=== PATIENT | female | born 1995 | race Caucasian/White ===

== ENCOUNTER 2023-04-25 23:10 | Inpatient (IN) | payer OTHER ==
[2023-04-25] MEDS ORDERED: LIDOCAINE 0.5% (PF) 5 MG/ML (50 ML SDV) SQ PRN (23:31)
[2023-04-25] MEDS ORDERED: TRANEXAMIC 1,000 MG/100ML-NACL 1,000 MG in EMPTY BAG 1 BAG IV PRN (23:31)
[2023-04-25] MEDS ORDERED: CARBOPROST TROMETHAMINE 250 MCG/ML 1 ML AMP IM PRN (23:31)
[2023-04-25] MEDS ORDERED: TERBUTALINE 1 MG/ML VIAL SQ PRN (23:31)
[2023-04-25] MEDS ORDERED: OXYTOCIN 10 UNIT/ML 1 ML VIAL IM PRN (23:31)
[2023-04-25] MEDS ORDERED: METHYLERGONOVINE 0.2 MG/ML 1 ML AMP IM PRN (23:31)
[2023-04-25] MEDS ORDERED: miSOPROStoL 200 MCG TAB PO PRN (23:31)
[2023-04-25 23:43] LABS: Basophils % (A) 0 %; Eosinophils # (A) 0.1 k/uL (0-0.7); Eosinophils % (A) 0 %; HCT 40.1 % (34.0-46.0); Lymphocytes # (A) 2.3 k/uL (1.0-4.8); Lymphocytes % (A) 13 %; MCH 29.9 pg (25.0-35.0); MCHC 34.9 g/dL (31.0-37.0); MCV 85.6 fL (80.0-100.0); Monocytes # (A) 0.8 k/uL (0-1.0); Monocytes % (A) 5 %; Neutrophils # (A) 14.2 k/uL (1.3-7.7); Neutrophils % (A) 80 %; Platelet Count 284 k/uL (150-450); RBC 4.69 m/uL (3.80-5.40); RDW 13.8 % (11.5-15.5); WBC 17.7 k/uL (3.8-10.6)
[2023-04-25] MEDS ORDERED: OXYTOCIN 30 UNITS/500 ML NS 30 UNIT in SALINE 1 500ML.BAG IV SCH (23:45)
[2023-04-26] MEDS: LACTATED RINGERS 1,000 ML IV SCH (01:10)
[2023-04-26] MEDS ORDERED: diphenhydrAMINE 50 MG CAP PO PRN (02:33)
[2023-04-26] MEDS ORDERED: ACETAMINOPHEN TAB 325 MG TAB PO PRN (02:33)
[2023-04-26] MEDS ORDERED: LANOLIN CREAM 5 GM TUBE TOPICAL PRN (02:33)
[2023-04-26] MEDS ORDERED: SIMETHICONE 80 MG CHEWABLE PO PRN (02:33)
[2023-04-26] MEDS ORDERED: diphenhydrAMINE 25 MG CAP PO PRN (02:33)
[2023-04-26] MEDS ORDERED: diphenhydrAMINE 50 MG/ML 1 ML VIAL IVP PRN ×2 (02:33)
[2023-04-26] MEDS ORDERED: ZOLPIDEM 5 MG TAB PO PRN (02:33)
[2023-04-26] MEDS ORDERED: BENZOCAINE/MENTHOL SPRAY 1 GM/SPRAY AEROSOL TOPICAL PRN (02:33)
[2023-04-26] MEDS ORDERED: HYDROCORTISONE 2.5% RECTAL CREAM 30 GM TUBE RECTAL PRN (02:33)
[2023-04-26] MEDS: IBUPROFEN 600 MG TAB PO PRN (02:44)
[2023-04-26 04:20] LABS: Amphetamine Screen,Urine Not Detected (NotDetected); Barbiturate Screen,Urine Not Detected (NotDetected); Benzodiazepines Screen,Urine Not Detected (NotDetected); Cocaine Screen,Urine Not Detected (NotDetected); Methadone Screen, Urine Not Detected (NotDetected); Opiate Screen,Urine Not Detected (NotDetected); Oxycodone Screen, Urine Not Detected (NotDetected); Phencyclidine Screen,Urine Not Detected (NotDetected); Tricyclic Antidepressant,Urine Not Detected (NotDetected); Urn Cannabinoid Scrn Not Detected (NotDetected)
--- NOTE | 2023-04-26 08:37 | P.HPOB ---
History of Present Illness H&P Date: 04/25/23 Chief Complaint: labor 27-year-old presented at 38 weeks and 5 days in active labor. Her cervix was completely dilated when she presented to triage and she was 0 station. heart tones are 140 with moderate variability. Her contractions were every 2-4 minutes. Review of Systems All systems: negative Constitutional: Denies chills, Denies fever Eyes: denies blurred vision, denies pain Ears, nose, mouth and throat: Denies headache, Denies sore throat Cardiovascular: Denies chest pain, Denies shortness of breath Respiratory: Denies cough Gastrointestinal: Denies abdominal pain, Denies diarrhea, Denies nausea, Denies vomiting Genitourinary: Denies dysuria, Denies hematuria Musculoskeletal: Denies myalgias Integumentary: Denies pruritus, Denies rash Neurological: Denies numbness, Denies weakness Psychiatric: Denies anxiety, Denies depression Endocrine: Denies fatigue, Denies weight change Past Medical History Past Medical History: No Reported History Additional Past Medical History / Comment(s): Patient did have care in [place] until the last 6 weeks when she stopped going due to them being "pushy" with the vaccines. History of Any Multi-Drug Resistant Organisms: None Reported Past Surgical History: No Surgical Hx Reported Past Anesthesia/Blood Transfusion Reactions: No Reported Reaction Smoking Status: Never smoker Medications and Allergies Allergies Allergy/AdvReac Type Severity Reaction Status Date / Time No Known Allergies Allergy Verified 04/25/23 23:31 Exam Osteopathic Statement: *. No significant issues noted on an osteopathic structural exam other than those noted in the History and Physical/Consult. Vital Signs Temp Pulse Resp BP Pulse Ox 04/26/23 03:23 98.6 F 86 16 145/87 98 04/26/23 02:09 68 16 155/88 99 04/26/23 01:39 73 16 140/81 99 04/26/23 01:09 80 16 147/84 98 04/26/23 00:54 78 16 145/80 99 04/26/23 00:39 76 16 144/81 98 04/26/23 00:24 75 16 153/81 99 04/26/23 00:09 97.6 F 68 16 164/83 100 04/25/23 23:30 97.6 F 79 16 153/81 99 Intake and Output 07/06/23 07/07/23 07/07/23 22:59 06:59 14:59 Intake Total 66.8 Output Total 335 Balance -268.2 Intake: Intake, IV Titration 66.8 Amount Oxytocin 30 Units/500 ml 66.8 Ns 30 unit In Saline 1 500ml.bag @ Per Protocol IV .Q0M [facility] Rx#:[id number] Output: Estimated Blood Loss 250 Output, Quantitative 85 Blood Loss Other: # Voids 2 Weight 102.058 kg Heart: Regular rate and rhythm Lungs: Clear to auscultation bilaterally Abdomen: Soft, nontender Extremities: Negative Homans sign Results Result Diagrams: 04/25/23 23:20 Abnormal Lab Results - Last 24 Hours (Table) 04/25/23 Range/Units 23:20 WBC 17.7 H (3.8-10.6) k/uL Neutrophils # 14.2 H (1.3-7.7) k/uL Assessment and Plan (1) Normal labor Current Visit: Yes Status: Acute Code(s): O80 - ENCOUNTER FOR FULL-TERM UNCOMPLICATED DELIVERY; Z37.9 - OUTCOME OF DELIVERY, UNSPECIFIED SNOMED Code(s): 52084979 Plan: 1. Expectant management 2. Anticipate normal vaginal delivery
--- NOTE | 2023-04-26 08:38 | P.PROBDLV ---
Vaginal Delivery Note - . Vaginal Delivery Note: 27-year-old presented at 38 weeks and 5 days in active labor. Her cervix was completely dilated when she presented to triage and she was 0 station. heart tones are 140 with moderate variability. Her contractions were every 2-4 minutes. Her cervix was checked at 2318 and she was complete. She pushed, delivered a viable female infant over intact perineum at 2345. Head delivered OA, anterior shoulder delivered gentle downward guidance for by posterior shoulder and rest of body. Nose mouth bulb suctioned, cord clamped clamped and cut, infant placed mother's abdomen. Apgars 9, 9, weight 6 lbs. 13 oz. Placenta delivered spontaneously, intact with three-vessel cord at 2348. Vagina, cervix, and perineum were inspected. First-degree midline laceration was repaired with 3-0 Vicryl. Estimated blood loss 250 mL. Mother and baby in stable condition.
--- NOTE | 2023-04-26 08:40 | P.PNOBGVD ---
Subjective - Subjective Principal diagnosis: Status post normal vaginal delivery day 1 Interval history: Patient seen and examined. Denies nausea, vomiting, chest pain, shortness of breath or calf pain. Patient reports: Reports appetite normal, Reports voiding normally, Reports pain well controlled, Reports ambulating normally [place]: doing well Objective - Latest Vital Signs Latest vital signs: Vital Signs Temp Pulse Resp BP Pulse Ox 04/26/23 03:23 98.6 F 86 16 145/87 98 04/26/23 02:09 68 16 155/88 99 04/26/23 01:39 73 16 140/81 99 04/26/23 01:09 80 16 147/84 98 04/26/23 00:54 78 16 145/80 99 04/26/23 00:39 76 16 144/81 98 04/26/23 00:24 75 16 153/81 99 04/26/23 00:09 97.6 F 68 16 164/83 100 04/25/23 23:30 97.6 F 79 16 153/81 99 Intake and Output 04/25/23 04/26/23 04/26/23 22:59 06:59 14:59 Intake Total 66.8 Output Total 335 Balance -268.2 Intake: Intake, IV Titration 66.8 Amount Oxytocin 30 Units/500 ml 66.8 Ns 30 unit In Saline 1 500ml.bag @ Per Protocol IV .Q0M [facility] Rx#:[id number] Output: Estimated Blood Loss 250 Output, Quantitative 85 Blood Loss Other: # Voids 2 Weight 102.058 kg - Exam Lungs: bilateral: normal Chest: Normal S1, Normal S2 Extremities: Present: normal Abdomen: Present: normal appearance, soft Uterus: Present: normal, firm - Labs Labs: Abnormal Lab Results - Last 24 Hours (Table) 04/25/23 Range/Units 23:20 WBC 17.7 H (3.8-10.6) k/uL Neutrophils # 14.2 H (1.3-7.7) k/uL Assessment and Plan (1) Normal labor Current Visit: Yes Status: Resolved Code(s): O80 - ENCOUNTER FOR FULL-TERM UNCOMPLICATED DELIVERY; Z37.9 - OUTCOME OF DELIVERY, UNSPECIFIED SNOMED Code(s): 89228401 (2) Normal vaginal delivery Current Visit: Yes Status: Acute Code(s): O80 - ENCOUNTER FOR FULL-TERM [facility] OMPLICATED DELIVERY SNOMED Code(s): 85928466 Plan: 1. cont pp care
[2023-04-26] MEDS: SENNOSIDES-DOCUSATE SODIUM 1 EACH TAB PO SCH ×2 (09:06→20:46)
[2023-04-27] MEDS: IBUPROFEN 600 MG TAB PO PRN (00:29)
[2023-04-27] MEDS: LACTATED RINGERS 1,000 ML IV SCH (04:15)
[2023-04-27 07:29] LABS: Basophils % (A) 0 %; Eosinophils # (A) 0.2 k/uL (0-0.7); Eosinophils % (A) 1 %; HCT 33.2 % (34.0-46.0); HGB 11.4 gm/dL (11.4-16.0); Lymphocytes # (A) 3.3 k/uL (1.0-4.8); Lymphocytes % (A) 28 %; MCH 30.7 pg (25.0-35.0); MCHC 34.2 g/dL (31.0-37.0); MCV 89.6 fL (80.0-100.0); Mean Platelet Volume 7.8; Monocytes # (A) 0.5 k/uL (0-1.0); Monocytes % (A) 5 %; Neutrophils # (A) 7.5 k/uL (1.3-7.7); Neutrophils % (A) 64 %; Platelet Count 205 k/uL (150-450); RBC 3.71 m/uL (3.80-5.40); RDW 14.1 % (11.5-15.5); WBC 11.7 k/uL (3.8-10.6)
--- NOTE | 2023-04-27 07:38 | P.PNOBGVD ---
Subjective - Subjective Patient reports: Reports appetite normal, Reports voiding normally, Reports pain well controlled, Reports ambulating normally [place]: doing well Objective - Latest Vital Signs Latest vital signs: Vital Signs Temp Pulse Resp BP Pulse Ox 04/27/23 04:00 98.7 F 84 16 157/97 100 04/27/23 00:00 97.9 F 78 16 138/86 98 04/26/23 20:00 97.1 F L 90 16 153/85 98 04/26/23 16:00 99.0 F 81 16 137/88 04/26/23 12:00 16 150/90 04/26/23 08:00 98.5 F 72 16 146/90 Intake and Output 04/26/23 04/27/23 04/27/23 22:59 06:59 14:59 Other: # Voids 1 - Exam Lungs: bilateral: normal Chest: Normal S1, Normal S2 Extremities: Present: normal Abdomen: Present: normal appearance, soft Uterus: Present: normal, firm - Labs Labs: Abnormal Lab Results - Last 24 Hours (Table) 04/27/23 Range/Units 07:03 WBC 11.7 H (3.8-10.6) k/uL RBC 3.71 L (3.80-5.40) m/uL Hct 33.2 L (34.0-46.0) % Assessment and Plan Assessment: Patient is resting without complaints. Blood pressures remain elevated with the highest being 157/97. I did review her blood pressure since admission and appears that she's had some elevated pressures. Patient has not seen a physician in approximately 6 weeks so its unknown if her blood pressures have been elevated the last few weeks or not. She does not have a headache or other signs and symptoms of preeclampsia, however I'm going to do preeclampsia blood work at this time and do some serial blood pressures. If her labs are normal and her blood pressures are not significantly elevated she is felt to be stable for discharge home follow up with Dr. May in 1 week. She's having normal lochia. (1) Normal vaginal delivery Current Visit: Yes Status: Acute Code(s): O80 - ENCOUNTER FOR FULL-TERM UNCOMPLICATED DELIVERY SNOMED Code(s): 98219900
--- NOTE | 2023-04-27 07:45 | P.DS ---
Providers Date of admission: 04/25/23 23:35 Expected date of discharge: 04/27/23 Attending physician: Danita May Primary care physician: Stated None - Discharge Diagnosis(es) (1) Normal vaginal delivery Current Visit: Yes Status: Acute Hospital Course: Please see dictated H&P and delivery note per Dr. May on this patient's admission. In brief summary this is a 27-year-old 1 para 0 female 38- 5/7 weeks gestation admitted to labor and delivery in active labor. Patient had no care at this hospital with our physicians and stated that she had not seen her physician in 6 weeks due to unhappiness with their care. Patient presented and quickly went on to have a vaginal delivery of viable female infant. Please see dictated delivery note. Of note patient did have some significant blood pressure elevations and initially this is most likely thought to be due to the pain of labor. Blood pressures however remained elevated and at the time of this dictation I did send blood work to check for preeclampsia. Blood work was normal and blood pressures remained mildly elevated and felt she was stable for discharge home follow up with Dr. May 1 week for a blood pressure check. I did discuss signs and symptoms of preeclampsia and indications to call. Unfortunately we have no reference blood pressures to compare to since she did not seek care in the last 6 weeks of her . Procedures: Normal spontaneous vaginal delivery Patient Condition at Discharge: Good Plan - Discharge Summary New Discharge Prescriptions: New Ibuprofen [Motrin] 600 mg PO Q6HR PRN #30 tab PRN Reason: Mild Pain Or Fever >= 100.5 Discharge Medication List Ibuprofen [Motrin] 600 mg PO Q6HR PRN #30 tab 04/26/23 [Rx] Follow up Appointment(s)/Referral(s): Danita May DO [Doctor of Osteopathic Medicine] - 06/06/23 3:45 pm (Please call Dr. May's office and see her for a blood pressure check next week.) Patient Instructions/Handouts: Vaginal Delivery (DC) Activity/Diet/Wound Care/Special Instructions: No intercourse or anything per vagina for 6 weeks. Please call if any fever, chills, excessive vaginal bleeding, and/or abdominal pain. Discharge Disposition: HOME SELF-CARE
[2023-04-27] MEDS: SENNOSIDES-DOCUSATE SODIUM 1 EACH TAB PO SCH (08:17)
[2023-04-27 09:14] VITALS: RESP 20; TEMP 98.2
[2023-04-27 10:57] VITALS: BP 144/89; PULSE 78
== END 2023-04-27 13:15 | disposition home or self-care (01) | DRG 807 ==
LOC: FBPOP 23:10 → 4FBP 23:35
PROVIDERS: ADMIT Obstetrics & Gynecology; ATTEND Obstetrics & Gynecology
PROC: 10E0XZZ Delivery of Products of Conception, External Approach (ICD-10-PCS; principal; 2023-04-25)
PROC: 0HQ9XZZ Repair Perineum Skin, External Approach (ICD-10-PCS; 2023-04-25)
DX: O75.89 Other specified complications of labor and delivery (principal); Z37.0 Single live birth; O70.0 First degree perineal laceration during delivery; R03.0 Elevated blood-pressure reading, without diagnosis of hypertension; Z3A.38 38 weeks gestation of pregnancy; Z28.310 Unvaccinated for COVID-19
CPT/HCPCS: 80306; 83615; 84450; 84460; 84550; 85025; 86850; 86900; 86901; 99213